=== PATIENT | female | born 1990 | race Caucasian/White ===

== ENCOUNTER 2019-11-11 16:18 | Inpatient (IN) ==
[2019-11-11] MEDS ORDERED: LACTATED RINGER'S 1,000 ML IV PRN (16:39)
[2019-11-11] MEDS ORDERED: OXYTOCIN 30 UNITS/500 ML BAG IV PRN (16:39)
--- NOTE | 2019-11-11 17:08 | History & Physical Report ---
Date of Service November 11, 2019 Assessment & Plan (1) : Admit to L&D for labor. Counseled/consented for . Reviewed RBA. Labs, EFM/toco. I called anesthesia. Admission and Anticipated Discharge Date Admission Date: November 11, 2019 History of Present Illness Chief Complaint: contractions Primary Care Provider: NO PCP 29yo @ 37 5/7 with contractions every 2-3 minutes. No vaginal bleeding or leaking fluid. + movement. complicated by: Hx Low transverse x2 - Plan for repeat at 39 weeks C/S SCHEDULED FOR 11/[address] SIMON AND DR. HUFFMAN ASSIST Need for Rhogam due to RH negative Received Rhogam at 5 weeks Rhogam received 09/07/19 OC *Will need Rhogam after delivery Psychiatrist with [facility] in [place] Allergies Allergy/AdvReac Type Severity Reaction Status Date / Time No Known Allergies Allergy Verified 11/10/19 15:22 Home Medications Home Medications Medication Instructions Recorded Confirmed Type PNV cmb#95-ferrous fumarate-FA 1 tab PO DAILY 02/17/19 11/10/19 History [] sertraline 50 mg tablet 50 mg PO DAILY #30 tab 05/20/19 11/10/19 Rx ferrous sulfate [iron] 325 mg PO DAILY 11/02/19 11/10/19 History Patient History Medical History Amenorrhea Anxiety and depression Blood type O- C. difficile colitis after c/s Genital warts Need for rhogam due to Rh negative mother with fetus of unknown gestational age Spontaneous Varicella vaccine Surgical History H/O section Previous section [place] teeth removed Family History Grandfather (Maternal) Myocardial infarction Diabetes Grandmother (Maternal) Celiac disease Rheumatoid arthritis Denies family history of Ovarian cancer Prostate cancer Breast cancer Colorectal cancer Social History Smoking Status: Never smoker Second Hand Exposure: No; Hx Alcohol Use: No Hx Substance Use: No Preferred Language: Maltese Communication Ability: Effective Senior Clinical Research Associate Required: No Beliefs That Will Affect Care: None marital status: marital status details: Herson Mishra ([phone] Current Living Situation: Spouse Current Living Situation Comment: and two children current occupational status: employed 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 at Home: Yes Childhood Exposure to Second-Hand Smoke: No caffeine: No Dental Care, Regularly: Yes Physical Activity Frequency: Does not Exercise Seatbelt Use: always Sunscreen Use: Yes Review of Systems All systems reviewed & are unremarkable except as noted in HPI & below Physical Exam Physical Exam: Cervix 2-3/50/-3, was // in office yesterday FHT Cat 1 [place] Q 2-3 min Constitutional: WD/WN, vitals as above Respiratory: normal respiratory effort, lungs clear to auscultation no respiratory distress Cardiovascular: Rate/Rhythm: regular rate and regular rhythm Gastrointestinal (Abdomen): Inspection/Auscultation: abdomen normal to inspection Percussion/Palpation: abdomen soft; abdomen nontender Gravid. No s/s chorio or abruption. Skin: no rashes, warm and dry Psychiatric: A+Ox3, euthymic affect Results & Data ([facility]) Vital Signs (Past 12 Hours) Vital Signs Temp Pulse BP 11/11/19 16:26 83 126/71 11/11/19 16:25 37.3 C Coding Level of Care Code None Diagnoses Z34.90
[2019-11-11 17:21] LABS: Hematocrit (blood only) 38.9 % (37-47); Hemoglobin 13.2 g/dL (12.0-16.0); Mean Corpuscular Hemoglobin 28.7 pg (25-34); Mean Corpuscular Volume 84.6 fL (80-100); Platelet Count 224 K/uL (130-400); RDW Coefficient of Variation 17.6 % (11.5-14.5); RDW Standard Deviation 54.8 fL (36.4-46.3); White Blood Count 12.37 K/uL (4.8-10.8)
[2019-11-11] MEDS ORDERED: CITRIC ACID/SODIUM CITRATE 15 ML UDC PO ONE (17:30)
[2019-11-11 17:31] LABS: Mean Corpuscular Hgb Conc 33.9 g/dL (32-36)
[2019-11-11] MEDS ORDERED: CITRIC ACID/SODIUM CITRATE 15 ML UDC ONE (17:31)
[2019-11-11] MEDS ORDERED: ceFAZolin 2000MG 2,000 MG/15 ML SYR IV ONE (17:45)
[2019-11-11] MEDS ORDERED: LACTATED RINGER'S 1,000 ML IV SCH ×2 (17:45→20:15)
[2019-11-11] MEDS ORDERED: OXYTOCIN 10 UNITS/ML VIAL ONE (17:51)
[2019-11-11] MEDS ORDERED: fentaNYL citrate 100 MCG/2 ML VIAL ONE (17:53)
[2019-11-11] MEDS ORDERED: MoRPHine SULFATE PF 1 MG/ML 10 ML AMP/VIAL ONE (17:53)
[2019-11-11] MEDS ORDERED: KETOROLAC 30 MG/ML VIAL ONE (17:53)
[2019-11-11] MEDS ORDERED: ONDANSETRON INJ 2 MG/ML 2 ML VIAL ONE (17:53)
[2019-11-11] MEDS ORDERED: PHENYLEPHRINE 100MCG/ML 5ML SYR ONE (17:55)
[2019-11-11] MEDS ORDERED: ePHEDrine sulfate 50 MG/ML SYR ONE (17:55)
--- NOTE | 2019-11-11 17:57 | Anesthesiology Consultation ---
Date of Service November 11, 2019 Assessment & Plan (1) Encounter for pre-operative examination: Chart Review Chart Review: Acceptable Risk for Surgery and Patient NOT seen in Pre Admission Testing Consults Requested none ASA ASA2 Proposed Anesthesia Anesthesia Type: Spinal Risk / Benefits Reviewed With: PT / POA / Parent / Guardian, Accepts Plan and Informed Consent Obtained History Surgery Operation Date: 11/11/19 17:30 Proposed Procedures p Section in - Sadie Paradaner, Height/Weight Height: 5 ft 4 in Weight: 68.492 kg Allergies Allergy/AdvReac Type Severity Reaction Status Date / Time No Known Allergies Allergy Verified 11/10/19 15:22 Medications Home Medications Medication Instructions Recorded Confirmed Last Taken PNV cmb#95-ferrous fumarate-FA 1 tab PO DAILY 02/17/19 11/10/19 11/01/19 08:00 [] sertraline 50 mg tablet 50 mg PO DAILY #30 tab 05/20/19 11/10/19 11/01/19 08:00 ferrous sulfate [iron] 325 mg PO DAILY 11/02/19 11/10/19 11/01/19 08:00 Active Medications Generic Name Dose Route Start Last Admin Trade Name Freq PRN Reason Stop Dose Admin Lactated Ringer's 1,000 mls @ 999 mls/hr 11/11/19 17:45 11/11/19 17:49 Lr IV 11/11/19 18:45 999 mls/hr .Q1H1M ROBIN Administration NPO Date Last Intake of Fluids: 11/11/19 Time Last Intake of Fluids: 14:00 Date Last Intake of Solids: 11/10/19 Time Last Intake of Solids: 11:00 Past Medical History Medical History Amenorrhea Anxiety and depression Blood type O- C. difficile colitis after c/s Genital warts Need for rhogam due to Rh negative mother with fetus of unknown gestational age Spontaneous Varicella vaccine Exercise / Class Metabolic Activity II 4-5 Yardwork/Stairs/Walk up hill Past Family History Family History Grandfather (Maternal) Myocardial infarction Diabetes Grandmother (Maternal) Celiac disease Rheumatoid arthritis Denies family history of Ovarian cancer Prostate cancer Breast cancer Colorectal cancer Past Surgical History Surgical History H/O section Previous section [place] teeth removed Past Anesthesia History No Hx of Anesthesia Complications and No Family Hx of Anesthesia Complications History of PONV No Hx of PONV and No Hx of Motion Sickness Social History Smoking Status: Never smoker Hx Alcohol Use: No Hx Substance Use: No Physical Exam Vital Signs Last Vital Signs Temp 37.3 C 11/11/19 16:48 Pulse 83 11/11/19 16:48 Resp 18 11/11/19 16:48 BP 126/71 11/11/19 16:48 ENMT Mouth: no dentition abnormality Thyromental Distance: > or= 3.5 Finger Breadths Mallampati Class: II Neck normal visual inspection Respiratory normal respiratory effort Auscultation: lungs clear to auscultation bilaterally Cardiovascular Rate/Rhythm: regular rate and regular rhythm Psychiatric Orientation: alert Testing Laboratory Results 11/11/19 17:07
[2019-11-11] MEDS ORDERED: NALOXONE HCL 0.08 MG in SYRINGE 1.8 ML IV PRN (18:32)
[2019-11-11] MEDS ORDERED: MoRPHine SULFATE 2 MG/ML CARP IV PRN (18:32)
[2019-11-11] MEDS ORDERED: PROMETHAZINE HCL 6.25 MG in SODIUM CHLORIDE 0.9% 50 ML IV PRN (18:32)
[2019-11-11] MEDS ORDERED: LACTATED RINGER'S 500 ML IV PRN (18:32)
[2019-11-11] MEDS ORDERED: ePHEDrine sulfate 50 MG/ML AMP IV PRN (18:32)
[2019-11-11] MEDS ORDERED: diphenhydrAMINE 50 MG/ML VIAL IV PRN (18:32)
[2019-11-11] MEDS ORDERED: MoRPHine SULFATE PF 1 MG/ML 10 ML AMP/VIAL INT SPINAL ONE (18:32)
[2019-11-11] MEDS ORDERED: ONDANSETRON INJ 2 MG/ML 2 ML VIAL IV PRN (18:32)
[2019-11-11] MEDS ORDERED: NALOXONE HCL 1 MG in SODIUM CHLORIDE 0.9% 1000ML 1,000 ML IV PRN (18:32)
[2019-11-11] MEDS ORDERED: MEPERIDINE HCL 25 MG/ML CARP/VIAL IV PRN (18:32)
[2019-11-11] MEDS ORDERED: NALOXONE HCL 0.4 MG/1 ML VIAL/CARP IV PRN (18:32)
[2019-11-11] MEDS ORDERED: HYDROmorphone INJ 0.5 MG/0.5 ML SYR IV PRN (18:32)
[2019-11-11] MEDS ORDERED: NO NARCOTICS OR SEDATIVES SCH (18:45)
[2019-11-11] MEDS ORDERED: SODIUM CHLORIDE 0.9% 1000ML 1,000 ML IV SCH (18:45)
[2019-11-11] MEDS ORDERED: DC INTRASPINAL MORPHINE SCH (18:45)
[2019-11-11 19:17] LABS: Base Excess Cord Venous Blood 0.2 mEq/L (-7.7-1.9); Cord Venous Blood HCO3 26 mmol/L (18.4-26.8); Cord Venous Blood PCO2 44 mmHg (30.4-57.2); Cord Venous Blood PO2 25 mmHg (14.1-43.3); Cord Venous Blood pH 7.38 (7.20-7.44)
[2019-11-11 19:23] LABS: Base Excess Cord Arterial Bld -0.2 mEq/L (-9-1.8); CO2 Cord Arterial Blood 55 mmHg (39.1-73.5); HCO3 Cord Arterial Blood 27 mmol/L (19.7-28.5); PO2 Cord Arterial Blood 13 mmHg (4.1-31.7); pH Cord Arterial Blood 7.31 (7.1-7.38)
[2019-11-11 19:28] LABS: O2 Saturation Cord Venous Bld < 60.0 % (<68); Oxygen Sat Cord Arterial Blood < 60.0 % (<60)
[2019-11-11] MEDS ORDERED: PROMETHAZINE HCL 25 MG in SODIUM CHLORIDE 0.9% 50 ML IV PRN (20:11)
[2019-11-11] MEDS ORDERED: MAGNESIUM HYDROXIDE SUSP 30 ML UDC PO PRN (20:11)
[2019-11-11] MEDS ORDERED: HYDROCORTISONE ACETATE 25 MG SUPP PR PRN (20:11)
[2019-11-11] MEDS ORDERED: BENZOCAINE 20% AER SPR 82.5 GM CAN EXT PRN (20:11)
[2019-11-11] MEDS ORDERED: SENNA 8.6 MG TAB PO PRN (20:11)
[2019-11-11] MEDS ORDERED: SUPERCREAM 0.870% 15 GM JAR EXT PRN (20:11)
[2019-11-11] MEDS ORDERED: Nursing to Pharmacy Communication SCH (20:30)
[2019-11-11] MEDS: OXYTOCIN 30 UNITS in LACTATED RINGER'S 1,000 ML IV SCH (21:16)
[2019-11-12] MEDS: KETOROLAC 30 MG/ML VIAL IV PRN ×2 (02:37→09:18)
[2019-11-12] MEDS: OXYTOCIN 30 UNITS in LACTATED RINGER'S 1,000 ML IV SCH (04:55)
[2019-11-12] MEDS: SIMETHICONE 80 MG CHEW PO SCH ×5 (05:20→20:47)
[2019-11-12 07:10] LABS: Basophils # (auto) 0.01 K/uL (0-0.2); Basophils % (auto) 0.1 %; Eosinophils # (auto) 0.09 K/uL (0-0.5); Eosinophils % (auto) 0.8 %; Hematocrit (blood only) 34.9 % (37-47); Hemoglobin 11.5 g/dL (12.0-16.0); Immature Granulocytes # (auto) 0.04 K/uL (0.00-0.02); Immature Granulocytes % (auto) 0.3 %; Lymphocytes # (auto) 1.16 K/uL (1.2-3.4); Mean Corpuscular Hemoglobin 28.1 pg (25-34); Mean Corpuscular Volume 85.3 fL (80-100); Mean Platelet Volume 9.9 fL (7.4-10.4); Monocytes % (auto) 7.8 %; Neutrophils # (auto) 9.36 K/uL (1.4-6.5); Platelet Count 152 K/uL (130-400); RDW Coefficient of Variation 17.2 % (11.5-14.5); RDW Standard Deviation 54.5 fL (36.4-46.3); Red Blood Count 4.09 M/uL (4.2-5.4); White Blood Count 11.56 K/uL (4.8-10.8)
--- NOTE | 2019-11-12 07:33 | Obstetrical Progress Note ---
Date of Service <Chin Barba MD - Last Filed: 11/12/19 07:33> November 12, 2019 Assessment & Plan <Chin Barba MD - Last Filed: 11/12/19 07:33> (1) delivery, delivered, current hospitalization: - PNL: Rh neg, RI, GBS neg, COVID neg - Feels well today - Pain well controlled with hydromorphone 0.5mg IV q4h prn, morphine 5mg IV q2h prn, oxycodone/acetaminophine 1-2tab PO q4h PRN - Routine postcesarean care - remove rai this afternoon, ambulate as tolerated, advance diet as tolerated - After discharge will have 6 week follow-up with Dr. Simon Subjective <Chin Barba MD - Last Filed: 11/12/19 07:33> Voiding: rai catheter in place Passing Gas:: Yes Diet Tolerance:: clear liquids Lochia:: Small Feeding Type:: bottle feeding Current Pain Level(1-10): 2 Constitutional: no fever and no chills Respiratory: no cough and no dyspnea Cardiovascular: no chest pain, no palpitations and no edema Gastrointestinal: no nausea and no vomiting Genitourinary (female): no dysuria Physical Exam <Chin Barba MD - Last Filed: 11/12/19 07:33> Constitutional no acute distress Respiratory normal respiratory effort, lungs clear to auscultation Cardiovascular RRR, no murmur, no edema Gastrointestinal (Abdomen) Inspection/Auscultation: normal bowel sounds Percussion/Palpation: abdomen soft incision clean/dry/intact Results & Data ([facility]) <Chin Barba MD - Last Filed: 11/12/19 07:33> Vital Signs (Past 12 Hours) Vital Signs Temp Pulse Pulse Resp BP BP Pulse Ox 11/12/19 04:15 36.8 C 82 18 94/56 L 100 11/12/19 03:30 18 11/12/19 02:59 18 11/12/19 01:30 18 11/12/19 00:00 37.0 C 76 18 107/68 100 11/11/19 23:15 18 100 11/11/19 22:20 36.8 C 80 18 110/64 100 11/11/19 21:30 36.5 C 66 18 125/82 100 11/11/19 21:16 70 100 11/11/19 21:11 70 99 11/11/19 21:07 72 106/54 L 11/11/19 21:06 73 100 11/11/19 21:05 18 11/11/19 21:01 70 99 11/11/19 20:56 70 100 11/11/19 20:51 68 100 11/11/19 20:46 68 100 11/11/19 20:41 62 100 11/11/19 20:36 72 105/71 100 11/11/19 20:35 18 11/11/19 20:31 72 100 11/11/19 20:26 68 100 11/11/19 20:21 65 100 11/11/19 20:16 70 100 11/11/19 20:11 62 100 11/11/19 20:06 64 110/59 L 100 11/11/19 20:05 18 11/11/19 20:01 66 100 11/11/19 19:56 71 100 11/11/19 19:55 18 11/11/19 19:51 60 100 11/11/19 19:46 62 100 11/11/19 19:45 65 18 105/61 11/11/19 19:41 65 100 11/11/19 19:36 73 100 11/11/19 19:35 36.9 C 60 18 102/58 L 11/11/19 19:31 65 100 <Sadie Simon, - Last Filed: 11/12/19 07:57> Co-Signing Physician Notes Resident Physician Supervision Note: I was present with Dr. Wong during the history and exam. I discussed the case with the resident and agree with the findings and plan as documented in the note. Any exceptions or clarifications are listed here: POD#1 doing well. Ambulate, increase diet today. Documented By: Sadie Simon DO
[2019-11-12] MEDS ORDERED: FERROUS SULFATE 325 MG TAB PO SCH (08:00)
[2019-11-12] MEDS ORDERED: DIPHTHERIA/TETANUS/PERTUSSIS 0.5 ML SYR/VIAL IM ONE (09:00)
[2019-11-12] MEDS: DOCUSATE SODIUM 100 MG CAP PO SCH ×2 (09:17→20:35)
[2019-11-12] MEDS: PRENATAL VITAMIN 1 TAB PO SCH (09:17)
[2019-11-12] MEDS: SERTRALINE HCL 50 MG TABLET PO SCH (09:17)
[2019-11-12] MEDS ORDERED: KETOROLAC 30 MG/ML VIAL IV PRN (12:33)
[2019-11-12] MEDS ORDERED: ONDANSETRON INJ 2 MG/ML 2 ML VIAL IV PRN (12:33)
[2019-11-12] MEDS ORDERED: diphenhydrAMINE Capsule 25 MG CAP PO PRN (12:33)
[2019-11-12] MEDS ORDERED: diphenhydrAMINE 50 MG/ML VIAL IV PRN (12:33)
[2019-11-12] MEDS ORDERED: bisacodyL 5 MG TABEC PO SCH (20:00)
[2019-11-12] MEDS ORDERED: ACETAMINOPHEN 500 MG TAB PO PRN (20:14)
[2019-11-12] MEDS: IBUPROFEN 600 MG TAB PO PRN (23:55)
[2019-11-13] MEDS: IBUPROFEN 600 MG TAB PO PRN ×2 (04:38→09:00)
[2019-11-13] MEDS: oxyCODONE/ACETAMINOPHEN 5mg/325mg TAB PO PRN ×2 (04:39→08:59)
[2019-11-13 06:00] LABS: Hematocrit (blood only) 36.1 % (37-47)
--- NOTE | 2019-11-13 06:51 | Obstetrical Progress Note ---
Date of Service <Chin Barba MD - Last Filed: 11/13/19 06:52> November 13, 2019 Assessment & Plan <Chin Barba MD - Last Filed: 11/13/19 06:52> (1) delivery, delivered, current hospitalization: - PNL: Rh neg, RI, GBS neg, COVID neg - Feels well today, POD#2 - Pain well controlled with hydromorphone 0.5mg IV q4h prn, morphine 5mg IV q2h prn, oxycodone/acetaminophine 1-2tab PO q4h PRN - Routine postcesarean care - ambulate as tolerated, advance diet as tolerated - Discharge tomorrow - After discharge will have 6 week follow-up with Dr. Simon Subjective <Chin Barba MD - Last Filed: 11/13/19 06:52> Ambulation: ambulating normally Voiding: no voiding problems Passing Gas:: Yes Diet Tolerance:: regular diet Lochia:: Small Constitutional: no fever and no chills Respiratory: no cough and no dyspnea Cardiovascular: no chest pain, no palpitations and no edema Gastrointestinal: no nausea and no vomiting Genitourinary (female): no dysuria Physical Exam <Chin Barba MD - Last Filed: 11/13/19 06:52> Constitutional no acute distress Respiratory normal respiratory effort, lungs clear to auscultation Cardiovascular RRR, no murmur, no edema Gastrointestinal (Abdomen) Inspection/Auscultation: normal bowel sounds Percussion/Palpation: abdomen soft Incision clean, dry, intact Results & Data ([facility]) <Chin Barba MD - Last Filed: 11/13/19 06:52> Vital Signs (Past 12 Hours) Vital Signs Temp Pulse Resp BP Pulse Ox 11/13/19 00:00 36.8 C 81 18 103/68 98 <Paul Mensah Jr, MD, FACOG - Last Filed: 11/13/19 08:07> Co-Signing Physician Notes Resident Physician Supervision Note: I was present with Dr. Wong during the history and exam. I discussed the case with the resident and agree with the findings and plan as documented in the note. Any exceptions or clarifications are listed here: Patient ambulating and tolerating a regular diet. Doing well and desires d/c. Instructions/Rx given, f/u in 6 weeks for pp check Documented By: Paul Mensah Jr, MD, FACOG
[2019-11-13] MEDS: DOCUSATE SODIUM 100 MG CAP PO SCH (08:59)
[2019-11-13] MEDS: SIMETHICONE 80 MG CHEW PO SCH (08:59)
[2019-11-13] MEDS: SERTRALINE HCL 50 MG TABLET PO SCH (08:59)
[2019-11-13] MEDS: PRENATAL VITAMIN 1 TAB PO SCH (08:59)
[2019-11-13 09:13] VITALS: BP 118/69; PULSE 71; TEMP 98.1; O2SAT 97
[2019-11-13] MEDS ORDERED: bisacodyL 10 MG SUPP PR PRN (20:02)
--- NOTE | 2019-11-22 19:36 | Operative Report ---
PG Post Operative Report Pre & Post Diagnosis Operation Date: 11/11/19 17:30 Pre-Op Diagnosis: History of C/S X2 CURRENT SPONTANOUS LABOR Post-Op Diagnosis: History of C/S X2 CURRENT SPONTANOUS LABOR I identified the patient and participated in the time-out.: Yes Procedure Operation Date: 11/11/19 17:30 Actual Procedures p Repeat low transverse Section in - Sadie Simon DO Surgeon Sadie Simon DO Tool And Die Maker Apprentice Maged Mensah MD Estimated Blood Loss 500 Findings Consistent with Post-Op Diagnosis Viable , please see nursery records. Normal appearing uterus, tubes, ovaries. Specimens placenta, cord gas. Drains rai clear yellow Anesthesia Type Spinal Complications none Disposition Accompanied Patient To Recovery: No Disposition: L&D Indications 29yo @ 37w, h/o x 2, presented in labor. Description of Procedure The patient was seen in her labor and delivery room, risks benefits and alternatives to surgery were reviewed. Informed consent obtained. Questions were answered. She was taken to the operating room, spinal anesthesia was administered. She was then prepared and draped in the usual sterile fashion in the supine position with a leftward tilt. Timeout was confirmed. A Pfannenstiel skin incision was made with a scalpel, and carried through to the underlying layer of fascia. Fascia was nicked at midline, and this incision was extended bilaterally. The superior aspect of the fascial incision was grasped with Jaya clamps x2, elevated off the underlying rectus abdominis muscles, and dissected sharply and bluntly. In similar fashion, the inferior aspect of the fascial incision was dissected. The rectus abdominis muscles were , and the peritoneum was entered bluntly digitally. This was extended bilaterally. The bladder flap was taken down carefully using Metzenbaum scissors. Using a new scalpel, a low transverse uterine incision was created. Clear amniotic fluid noted. The was delivered from a cephalic presentation. The head delivered, followed by shoulders and body. Spontaneous cry on the field. The cord was doubly clamped and cut, and the infant was handed off to the waiting juvenile justice specialist. A segment was retained for cord gases. Cord blood was obtained. The placenta was delivered spontaneously intact. The uterus was exteriorized, and cleared of all clots and debris. The hysterotomy incision was reapproximated using 0 Vicryl in a running locked stitch. A second layer of the same suture was used to imbricate the incision. Posterior uterus was evaluated and normal. The uterus was returned to the abdomen, and gutters were cleared of clots and debris. Excellent hemostasis was observed. The fascial incision was reapproximated using 0 Vicryl in a running stitch. The subcutaneous tissue was irrigated, and reapproximated using 2-0 plain gut in a running stitch. The skin was reapproximated using 4-0 Vicryl in a running subcuticular stitch. Steri-Strips and a bandage were applied. The patient tolerated the procedure well, and will be taken to the recovery area in stable and good condition. I attest to the content of the Intraoperative Record and any orders documented therein. Any exceptions are noted below.
--- NOTE | 2019-11-22 19:42 | Discharge Summary ---
Date of Service November 22, 2019 Admission HPI Per Admitting Provider 29yo @ 37 5/7 with contractions every 2-3 minutes. No vaginal bleeding or leaking fluid. + movement. complicated by: Hx Low transverse x2 - Plan for repeat at 39 weeks C/S SCHEDULED FOR 11/[address] SIMON AND DR. HUFFMAN ASSIST Need for Rhogam due to RH negative Received Rhogam at 5 weeks Rhogam received 09/07/19 OC *Will need Rhogam after delivery Psychiatrist with [facility] in [place] Discharge Data Consultations 11/11/19 16:42 Consult Anesthesiology Stat Procedures Performed Operation Date: 11/11/19 17:30 Actual Procedures p Section in - Sadie Simon, Hospital Course (1) Supervision of normal intrauterine in multigravida: The patient was admitted in labor, underwent section. Please see operative report for details. She was discharged after a routine postoperative course. Follow-up in the office in 6 weeks. Coding Level of Care Code None Diagnoses Supervision of normal intrauterine in multigravida Z34.80
== END 2019-11-13 10:20 | disposition home or self-care (01) | DRG 787 ==
LOC: OPB 16:18 → 4S1 16:19 → 4S2 21:44

== ENCOUNTER 2022-06-15 14:55 | Observation (INO) ==
[2022-06-15] MEDS ORDERED: TERBUTALINE SULFATE 1 MG/ML VIAL SQ PRN (15:29)
--- NOTE | 2022-06-15 16:15 | History & Physical Report ---
Date of Service June 15, 2022 Assessment & Plan (1) uterine contractions in third trimester, antepartum: Plan: IUP at 33-3/7 weeks with contractions. Urine dips negative for ketones or protein. I believe she is well-hydrated as she states she has been pushing fluids for the last several days. Cervical exam is reassuring. FFN performed and while waiting for the results, will give 1 dose of SQ terbutaline. If FFN is positive we will give Celestone IM today and have her return for second dose tomorrow. If negative, we will have her follow-up in the office for routine OB care. Admission and Anticipated Discharge Date Admission Date: June 15, 2022 History of Present Illness Primary Care Provider: Ramana Haskins DO patient is a 32-year-old 6 para 3-0-2-3 female EDC 07/31/2022 who presents at 33-3/7 weeks with increasingly more frequent contractions over the last 48 hours. She tends to have fairly frequent [place] contractions, at least every hour over the last several weeks. However over the last 48 hours they have become increasingly more frequent and more uncomfortable. She has had no change in vaginal discharge bleeding or leaking fluid. Her first delivered at 39 weeks however subsequent pregnancies were delivered at 37 weeks. She has had 3 sections and she is already scheduled for her fourth section at 39 weeks. Allergies Allergy/AdvReac Type Severity Reaction Status Date / Time No Known Allergies Allergy Verified 06/11/22 11:04 Home Medications Medication Instructions Recorded Confirmed Type prenat.vits,zina,xln-kive-jkpeo 1 tab PO DAILY 12/15/21 06/15/22 History docusate sodium 100 mg capsule 100 mg PO BID 06/15/22 06/15/22 History (Colace) ferrous sulfate 325 mg (65 mg 325 mg PO DAILY 06/15/22 06/15/22 History iron) tablet omega-3 fatty acids 800 mg PO DAILY 06/15/22 06/15/22 History Patient History Medical History (Updated 06/15/22 @ 16:11 by Tessa Bejarano MD, FACOG) Amenorrhea Anxiety Anxiety and depression Blood type O- C. difficile colitis after c/s Genital warts Need for rhogam due to Rh negative mother with fetus of unknown gestational age Spontaneous Varicella vaccine Surgical History (Updated 12/15/21 @ 15:22 by Nicohle Gorman) H/O section Previous section [place] teeth removed Family History Grandfather (Maternal) Myocardial infarction Diabetes Grandmother (Maternal) Celiac disease Rheumatoid arthritis Denies family history of Ovarian cancer Prostate cancer Breast cancer Colorectal cancer Social History (Updated 12/15/21 @ 15:16 by Nichole Gorman) Smoking Status: Never smoker Second Hand Exposure: No; Hx Alcohol Use: No Hx Substance Use: No Preferred Language: Turkish Communication Ability: Effective Visual Impairment: Limited Hearing Ability: Normal Veterinarian Assistant Required: No Beliefs That Will Affect Care: None marital status: marital status details: Herson Mishra ([phone] Current Living Situation: Spouse and Family Current Living Situation Comment: lives with , 3 children, dog current occupational status: employed 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 at Home: Yes Childhood Exposure to Second-Hand Smoke: No caffeine: No Dental Care, Regularly: Yes Physical Activity Frequency: Does not Exercise Seatbelt Use: always Sunscreen Use: Yes Assistive Devices: None Review of Systems All systems reviewed & are unremarkable except as noted in HPI & below Physical Exam Constitutional: WD/WN, vitals as above Psychiatric: A+Ox3, euthymic affect Genitourinary: OB Exam Abdomen: + vertex and + regular contractions ( Q2-4 minutes- mild) Manual OB Exam: + cervical dilation (closed), + cervical effacement (long but soft) and + station high OB Exam Monitor Tracing: + external FHT monitor used, + external uterine monitor used, + category I and + normal FHT variability Results & Data Vital Signs (Past 12 Hours) Vital Signs Temp Pulse Resp BP 06/15/22 15:50 85 96/55 L 06/15/22 15:05 18 06/15/22 15:05 98.4 F 18 06/15/22 15:06 75 102/64 Coding Level of Care Code 22694 INT INP/OBS CARE 1/40MIN Diagnoses uterine contractions in third trimester, antepartum O47.03
--- NOTE | 2022-06-15 16:59 | Obstetrical Progress Note ---
Date of Service June 15, 2022 Assessment & Plan (1) uterine contractions in third trimester, antepartum: Plan: contractions now rare since SQ terbutaline FHT category 1 FFN -negative patient feeling better will d/c to home with usual PTL instructions she will keep appt already scheduled for Sunday 06/18. Admission and Anticipated Discharge Date Admission Date: June 15, 2022 Subjective contractions stopped quickly with one dose of terbutaline. contractions now rare FFN is negative FHT's category 1 Review of Systems Review of Systems: All systems reviewed & are unremarkable except as noted in HPI & below Physical Exam Constitutional: WD/WN, vitals as above Psychiatric: A+Ox3, euthymic affect Genitourinary: OB Exam Abdomen: + irregular contractions (rare) OB Exam Monitor Tracing: + external FHT monitor used, + external uterine monitor used, + category I and + normal FHT variability Results & Data Vital Signs (Past 12 Hours) Vital Signs Temp Pulse Resp BP 06/15/22 16:12 90 101/60 06/15/22 15:50 85 96/55 L 06/15/22 15:05 18 06/15/22 15:05 98.4 F 18 06/15/22 15:06 75 102/64 PG Care Time/CCT Total # of Minutes Spent Total Time Spent with Patient: Total time spent is greater than 50% in coordination of care (as documented) at patient's floor/unit and/or counseling patient: Coding Level of Care Code 75536 SUB INP/OBS CARE 1/25MIN Diagnoses uterine contractions in third trimester, antepartum O47.03
--- NOTE | 2022-06-20 04:33 | Discharge Summary (DS) ---
DATE OF OBSERVATION: 06/15/2022. PRINCIPAL DIAGNOSIS: contractions at 33 and 3/7 weeks, prior section x3. HISTORY: The patient is a 32-year-old 6, para 3-0-2-3, female who had presented at 33 and 3/7 weeks with increasingly more frequent and intense contractions over the past 48 hours. She has always had frequent [place] contractions, but they are becoming more concerning at this point. She denied any vaginal discharge or leaking fluid. Her first delivered at 39 weeks by section, but subsequent pregnancies were delivered at 37 weeks because of presentation in labor. All of her deliveries have been by section. The patient was noted to be lee about every 2-3 minutes on the monitor. heart tracing was reassuring and category 1. She was well hydrated as noted on urine dipstick for ketones. She was given 1 dose of terbutaline 0.25 mg subcutaneously and this significantly diminished the contractions to just rare occurrences. FFN was negative at this visit and cervical exam was long closed and high; therefore Celestone was not given because of the decreased chance of delivery at this time based on an FFN. She will keep her previously scheduled appointment on 06/18/2022. She is to call again for any contractions that are greater than 5 in an hour, bleeding, or change in vaginal discharge. Job ID: [id number] [facility]
== END 2022-06-15 16:45 | disposition home or self-care (01) ==
LOC: 4S1 14:55 → OPB 14:55 → 4S1 14:56
DX: Z3A.33 33 weeks gestation of pregnancy; O47.03 False labor before 37 completed weeks of gestation, third trimester

== ENCOUNTER 2022-07-10 10:38 | Inpatient (IN) ==
[~2022-07-10 10:38] MED LIST: CITRIC ACID/SODIUM CITRATE 15 ML UDC PO SCH; ceFAZolin 2000MG 2,000 MG/15 ML SYR IV SCH
[2022-07-10] MEDS: LACTATED RINGER'S 1,000 ML IV SCH ×2 (12:23→13:28)
--- NOTE | 2022-07-10 12:23 | History & Physical Report ---
Date of Service July 10, 2022 Assessment & Plan (1) Previous delivery affecting , antepartum: Plan: Dayanara is a 32-year-old at 37 weeks 0 days gestational age presents in early labor with history of 3 prior C-sections. discussed with patient that she appears to be in early labor with 3 prior C-sections recommended we proceed with Caesarean section. Discussed this plan with MFM who was in agreement. C- section consents reviewed and signed. Surgical risks specifically reviewed all questions answered patient's satisfaction. Patient declined tubal ligation. Reactive NST noted. (2) Supervision of normal intrauterine in multigravida: (3) Normal labor: History of Present Illness Primary Care Provider: Ramana Haskins DO Dayanara is a 32-year-old 023 with history of 3 prior C-sections. Patient presents with painful contractions every 3-5 minutes which have been ongoing for the past 4-5 weeks. She reports that the contractions acutely worsened this morning. Patient was noted be 1 cm dilated yesterday. Initial evaluation today she was found to be 1.5 to 2 cm dilated 75% effaced -2 station. Recheck approximately 1 hour later patient was found to be 2 to 2.5 cm dilated 90% effaced -2 station. patient is noted be lee on tocometer every 3-4 minutes. Patient denies leakage of fluid or vaginal bleeding. reporting good movement. complications: Previous c-sections x 3 - C/S SCHEDULED FOR 07/27/[address] JACOB AND DR. REID ASSIST Need for Rhogam d/t Rh negative mother *Rhogam given 05/14/22 - SP OB Labs: Blood Type O Negative 01/03/22 Antibody Screen NEGATIVE 05/14/22 Hemoglobin 10.9 g/dl (12.0-16.0) L 05/14/22 Hematocrit 31.7 % (37.0-47.0) L 05/14/22 Mean Corpuscular Volume 84.3 fL (80.0-100.0) 01/03/22 Platelet Count 284 K/uL (130-400) 01/03/22 Rubella IgG Antibody Immune (Immune) 01/03/22 Rapid Plasma Reagin Nonreactive (Nonreactive) 01/03/22 F Hepatitis B Surface Antigen Neg (Neg) 04/30/19 Hepatitis B Surface Antigen. NON-REACTIVE (NON-REACTIVE) 01/03/22 Hepatitis C Antibody (EIA) NON-REACTIVE (NON-REACTIVE) 01/03/22 HIV (1&2) Ab and P24 Ag, 4th Gener Neg (Neg) 04/30/19 HIV (1&2) Ag and Ab Confirmation NON-REACTIVE (NON-REACTIVE) 01/03/22 Glucose 1 Hour 50 gm Load 145 mg/dl (70-130) H 05/14/22 Maternal Serum Alpha Fetoprotein 26.0 ng/mL 02/19/22 OB Optional Labs: Chlamydia trachomatis RNA Not Detected (NotDetected) 12/27/21 Neisseria gonorrhoeae RNA Not Detected (NotDetected) 12/27/21 Alpha Fetoprotein Triple Screen SEE NOTE 02/19/22 Labs Reviewed: cf/sma negative.--2020 cfdna-low risk--mln Allergies Allergy/AdvReac Type Severity Reaction Status Date / Time No Known Allergies Allergy Verified 07/09/22 14:35 Home Medications Medication Instructions Recorded Confirmed Type prenat.vits,zina,ksm-apla-bgafz 1 tab PO DAILY 12/15/21 07/09/22 History docusate sodium 100 mg capsule 100 mg PO BID 06/15/22 07/09/22 History (Colace) ferrous sulfate 325 mg (65 mg 325 mg PO DAILY 06/15/22 07/09/22 History iron) tablet omega-3 fatty acids 800 mg PO DAILY 06/15/22 07/09/22 History Patient History Medical History Amenorrhea Anxiety Anxiety and depression Blood type O- C. difficile colitis after c/s Genital warts Need for rhogam due to Rh negative mother with fetus of unknown gestational age Spontaneous Varicella vaccine Surgical History H/O section Previous section [place] teeth removed Family History Grandfather (Maternal) Myocardial infarction Diabetes Grandmother (Maternal) Celiac disease Rheumatoid arthritis Denies family history of Ovarian cancer Prostate cancer Breast cancer Colorectal cancer Social History (Updated 12/15/21 @ 15:16 by Nichole Gorman) Smoking Status: Never smoker Second Hand Exposure: No; Do You Dip or Chew Tobacco: No; Hx Alcohol Use: No Hx Substance Use: No Preferred Language: Bruneian Communication Ability: Effective Visual Impairment: Limited Hearing Ability: Normal Senior Sql Server Developer Required: No Beliefs That Will Affect Care: None marital status: marital status details: Herson Mishra (35) [phone] Current Living Situation: Spouse Current Living Situation Comment: lives with , 3 children, dog current occupational status: employed 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 at Home: Yes Childhood Exposure to Second-Hand Smoke: No caffeine: No Dental Care, Regularly: Yes Physical Activity Frequency: Does not Exercise Seatbelt Use: always Sunscreen Use: Yes Assistive Devices: None Physical Exam Respiratory: normal respiratory effort; no respiratory distress, no labored breathing and no retractions Cardiovascular: Rate/Rhythm: regular rate Genitourinary: Manual OB Exam: + cervical dilation 2 cm, + cervical effacement 90% and + station -2 OB Exam Monitor Tracing: + external FHT monitor used, + external uterine monitor used, + category I and + normal FHT variability; no early decelerations present, no late decelerations present and no variable decelerations tocometer with contractions every 3-5 minutes Coding Level of Care Code None Diagnoses Previous delivery affecting , antepartum O34.219 Supervision of normal intrauterine in multigravida Z34.80 Normal labor O80; Z37.9
--- NOTE | 2022-07-10 12:26 | Anesthesiology Consultation ---
Date of Service July 10, 2022 Assessment & Plan (1) Encounter for pre-operative examination: Chart Review Chart Review: Acceptable Risk for Surgery History Height/Weight Height: 5 ft 4 in Weight: 66.224 kg Allergies Allergy/AdvReac Type Severity Reaction Status Date / Time No Known Allergies Allergy Verified 07/09/22 14:35 Medications Home Medications Medication Instructions Recorded Confirmed Last Taken prenat.vits,zina,pub-eziw-aftny 1 tab PO DAILY 12/15/21 07/09/22 06/25/22 docusate sodium 100 mg capsule 100 mg PO BID 06/15/22 07/09/22 Unknown (Colace) ferrous sulfate 325 mg (65 mg 325 mg PO DAILY 06/15/22 07/09/22 06/25/22 iron) tablet omega-3 fatty acids 800 mg PO DAILY 06/15/22 07/09/22 06/25/22 Past Medical History Medical History Amenorrhea Anxiety Anxiety and depression Blood type O- C. difficile colitis after c/s Genital warts Need for rhogam due to Rh negative mother with fetus of unknown gestational age Spontaneous Varicella vaccine Past Family History Family History Grandfather (Maternal) Myocardial infarction Diabetes Grandmother (Maternal) Celiac disease Rheumatoid arthritis Denies family history of Ovarian cancer Prostate cancer Breast cancer Colorectal cancer Past Surgical History Surgical History H/O section Previous section [place] teeth removed Social History Smoking Status: Never smoker Do You Dip or Chew Tobacco: No Hx Alcohol Use: No Hx Substance Use: No substance use type: does not use Testing Laboratory Results Laboratory Tests 02/17/19 01/03/22 05/14/22 21:10 12:02 15:36 Hgb 10.9 L Plt Count 284 Potassium 3.3 L Creatinine 0.86
[2022-07-10] MEDS ORDERED: MoRPHine SULFATE PF 1 MG/ML 10 ML AMP/VIAL ONE (12:29)
[2022-07-10] MEDS ORDERED: LIDOCAINE 2% MPF LOCAL 5 ML VIAL ONE (12:35)
[2022-07-10] MEDS ORDERED: OXYTOCIN 10 UNITS/ML 10ML VIAL ONE (12:35)
[2022-07-10] MEDS ORDERED: METOCLOPRAMIDE HCL INJ 5 MG/ML 2 ML VIAL ONE (12:35)
[2022-07-10] MEDS ORDERED: PROPOFOL IV EMULSION 10 MG/ML 20 ML VIAL IV ONE (12:35)
[2022-07-10] MEDS ORDERED: ONDANSETRON INJ 2 MG/ML 2 ML VIAL ONE (12:35)
[2022-07-10] MEDS ORDERED: SUCCINYLCHOLINE CHLORIDE 20 MG/ML 10 ML VIAL IV ONE (12:35)
[2022-07-10] MEDS ORDERED: CITRIC ACID/SODIUM CITRATE 15 ML UDC ONE (12:42)
[2022-07-10 13:12] LABS: Hematocrit (blood only) 37.1 % (37.0-47.0); Hemoglobin 12.9 g/dl (12.0-16.0); Mean Corpuscular Hemoglobin 31.6 pg (25.0-34.0); Mean Corpuscular Hgb Conc 34.8 g/dL (32.0-36.0); Mean Corpuscular Volume 90.9 fL (80.0-100.0); Mean Platelet Volume 9.8 fL (9.4-12.4); Platelet Count 162 K/uL (130-400); RDW Coefficient of Variation 13.6 % (11.5-14.5); RDW Standard Deviation 45.1 fL (36.4-46.3); Red Blood Count 4.08 M/uL (4.20-5.40); White Blood Count 10.59 K/ul (4.8-10.8)
[2022-07-10] MEDS ORDERED: PHENYLEPHRINE 100MCG/ML 5ML SYR ONE (13:50)
[2022-07-10] MEDS ORDERED: ePHEDrine sulfate 50 MG/ML SYR ONE (13:50)
[2022-07-10] MEDS ORDERED: MoRPHine SULFATE PF 1 MG/ML 10 ML AMP/VIAL INT SPINAL ONE (14:39)
[2022-07-10] MEDS ORDERED: NALBUPHINE HCL INJ 10 MG/ML AMP IV PRN (14:39)
[2022-07-10] MEDS ORDERED: ePHEDrine sulfate 50 MG/ML AMP IV PRN (14:39)
[2022-07-10] MEDS ORDERED: MoRPHine SULFATE 2 MG/ML CARP IV PRN (14:39)
[2022-07-10] MEDS ORDERED: ONDANSETRON INJ 2 MG/ML 2 ML VIAL IV PRN (14:39)
[2022-07-10] MEDS ORDERED: LACTATED RINGER'S 500 ML IV PRN (14:39)
[2022-07-10] MEDS ORDERED: PROMETHAZINE HCL 12.5 MG in SODIUM CHLORIDE 0.9% 50 ML IV PRN (14:39)
[2022-07-10] MEDS ORDERED: NALOXONE HCL 0.4 MG/1 ML VIAL/CARP IV PRN (14:39)
[2022-07-10] MEDS ORDERED: diphenhydrAMINE 50 MG/ML VIAL IV PRN (14:39)
[2022-07-10] MEDS ORDERED: NALOXONE HCL 0.08 MG in SYRINGE 1.8 ML IV PRN (14:39)
[2022-07-10] MEDS ORDERED: NALOXONE HCL 1 MG in SODIUM CHLORIDE 0.9% 1000ML 1,000 ML IV PRN (14:39)
--- NOTE | 2022-07-10 14:42 | Post Operative Brief Note ---
PG Immediate Post Op with CF Date of Surgery July 10, 2022 Pre & Post Diagnosis Operation Date: 07/10/22 13:30 Pre-Op Diagnosis: Early term Labor Repeat SECTION Post-Op Diagnosis: Early term Labor Repeat SECTION I identified the patient and participated in the time-out.: Yes Procedure Operation Date: 07/10/22 13:30 Actual Procedures p Section in LD - Prieto Doshi MD Surgeon Prieto Doshi MD Data Security Consultant Caty Glasgow PGY-1 Estimated Blood Loss 500 Findings Consistent with Post-Op Diagnosis Specimens Specimen Description: A) Placenta Drains Magallanes Catheter (draining and monitored by anesthesia throughout procedure ) OB Procedure charges OB Charges 72495
[2022-07-10] MEDS ORDERED: SODIUM CHLORIDE 0.9% 1000ML 1,000 ML IV SCH (14:45)
[2022-07-10] MEDS ORDERED: NO NARCOTICS OR SEDATIVES SCH (14:45)
[2022-07-10] MEDS ORDERED: DC INTRASPINAL MORPHINE SCH (14:45)
[2022-07-10] MEDS ORDERED: BENZOCAINE 20% AER SPR 82.5 GM CAN EXT PRN (14:59)
[2022-07-10] MEDS ORDERED: DIPHTHERIA/TETANUS/PERTUSSIS 0.5mL SYR/VIAL (Age 7+yrs) IM ONE (14:59)
[2022-07-10] MEDS ORDERED: LACTATED RINGER'S 1,000 ML IV SCH (14:59)
[2022-07-10] MEDS ORDERED: MAGNESIUM HYDROXIDE SUSP 30 ML UDC PO PRN (14:59)
[2022-07-10] MEDS ORDERED: SENNA 8.6 MG TAB PO PRN (14:59)
[2022-07-10] MEDS ORDERED: HYDROCORTISONE ACETATE 25 MG SUPP PR PRN (14:59)
--- NOTE | 2022-07-10 16:02 | Anesthesiology Progress Note ---
Date of Service July 10, 2022 Anesthesia Post Procedure Vital Signs Vital Signs: Temp Pulse Resp BP Pulse Ox 07/10/22 15:42 36.4 C L 19 07/10/22 14:45 36.4 C L 17 07/10/22 16:00 69 99 07/10/22 15:55 83 100 07/10/22 15:50 76 99 07/10/22 15:46 65 98/54 L 07/10/22 15:45 68 99 07/10/22 15:40 75 99 07/10/22 15:39 72 104/53 L 07/10/22 15:35 81 98 07/10/22 15:30 74 97 07/10/22 15:28 86 90/54 L 07/10/22 15:25 84 96 07/10/22 15:20 80 97 07/10/22 15:18 73 93/55 L 07/10/22 15:15 74 96 07/10/22 15:10 80 96 07/10/22 15:08 91 H 105/63 07/10/22 15:05 92 07/10/22 15:05 94 H 07/10/22 15:05 80 99 07/10/22 15:00 79 100 07/10/22 14:59 96 H 108/58 L 07/10/22 14:55 76 99 07/10/22 14:50 96 H 100 07/10/22 14:46 68 105/58 L Transfer of Care Handoff Completed per policy Notes Mental Status: alert / awake / arousable Patient Amnestic to Procedure: Yes Nausea / Vomiting: adequately controlled Pain: adequately controlled Airway Patency, RR, SpO2: stable & adequate BP & HR: stable & adequate Hydration State: stable & adequate Neuraxial Anesthesia: was administered and sensory block is resolving Anesthetic Complications: no major complications apparent
[2022-07-10] MEDS: IBUPROFEN 600 MG TAB PO PRN (16:30)
[2022-07-10] MEDS: OXYTOCIN 20 UNITS in LACTATED RINGER'S 1,000 ML IV SCH (17:02)
[2022-07-10] MEDS: SIMETHICONE 80 MG CHEW PO SCH ×2 (18:50→21:10)
[2022-07-10] MEDS: KETOROLAC 30 MG/ML VIAL IV PRN (20:04)
[2022-07-10] MEDS: DOCUSATE SODIUM 100 MG CAP PO SCH (21:10)
[2022-07-11] MEDS: OXYTOCIN 20 UNITS in LACTATED RINGER'S 1,000 ML IV SCH (01:07)
[2022-07-11] MEDS: KETOROLAC 30 MG/ML VIAL IV PRN ×2 (02:21→08:26)
--- NOTE | 2022-07-11 02:21 | Operative Report (OR) ---
DATE OF SERVICE: 07/10/2022. PROCEDURE: Repeat low transverse section. SURGEON: Prieto Doshi MD. DETASSELER: Dr. Caty Glasgow, PGY-1. PREOPERATIVE DIAGNOSES: 1. Single intrauterine at 37 weeks, 0 days gestational age. 2. History of x3. 3. Early labor. POSTOPERATIVE DIAGNOSES: 1. Single intrauterine at 37 weeks, 0 days gestational age. 2. History of x3. 3. Early labor. 4. Status post procedure. ESTIMATED BLOOD LOSS: 500 mL. DRAINS: Magallanes catheter. FLUIDS: Continuous lactated Ringer. URINE OUTPUT: Per Magallanes catheter. COMPLICATIONS: None. FINDINGS: Viable female with Apgars of 8 and 9 at one and five minutes respectively and weig ht of 7 pounds 0.9 ounces. There was noted to be scar tissue in the subcutaneous layers. No signifi cant adhesions or scar tissue within the abdominal cavity. Normal-appearing uterus, ovaries and bila teral fallopian tubes. DESCRIPTION OF PROCEDURE: The patient was taken to the operating room after consents were assured. Upon presentation, she was properly identified. Spinal anesthesia was obtained without difficulty. The patient was then prepped and draped in normal sterile fashion. A preprocedural timeout was perfo rmed. A Pfannenstiel incision was then made with a knife. This was carried down to underlying fasci a with the Bovie. Fascia was then nicked at the midline with a knife and extended laterally with nikhil grullon and Garay scissors. The superior aspect of the fascia was grasped with Kochers x2, elevated off the underlying rectus muscles using blunt dissection. The inferior aspect of the fascia was grasped with Kochers x2, elevated off the underlying rectus muscles using blunt dissection. Midline of the a bdomen was then entered bluntly and placed on stretch to provide adequate room for delivery. There w as noted to be no significant adhesions or scar tissue within the abdominal cavity. A low transverse uterine incision was then made with a knife. The uterine cavity was entered bluntly and clear amnio tic fluid was noted. The hysterotomy was then extended to allow room for delivery. The head of the was delivered to be in cephalic position, was delivered through the hysterotomy without diffi culty, body and shoulders quickly followed. was noted to be vigorous soon after delivery and a 1 minute delayed cord clamping was initiated. Cord was then double clamped and cut. was taken over to the waiting nursery staff for further evaluation. Cord blood was obtained. Attention was then turned to delivery of the placenta, which was delivered intact, 3-vessel cord, gentle cord t raction. The uterus was then exteriorized, several passes were made to remove any remaining membrane s with a dry lap. The uterus was wrapped in wet lap and the hysterotomy was reapproximated with 0 Vi cryl continuous running locked stitch. A second imbricating layer of 0 Vicryl was then performed and hemostasis was noted. Posterior cul-de-sac cleaned of clots and debris. Uterus returned to materna l abdomen, noted to have continued hemostasis. The right and left pericolic gutters were cleaned of clots and debris, and the uterus was reinspected and noted to have continued hemostasis. The subcuta neous layers, fascia and space of Retzius were all evaluated and noted to be hemostatic. The fascia was then reapproximated with 0 Vicryl in continuous running stitch. The subcutaneous layers were dianne pproximated with a 2-0 plain with continuous running stitch in a single layer. Skin was reapproximat ed with 3-0 Vicryl and subcuticular stitch and Dermabond placed on top. Needle, sponge, and instrume nt counts were correct at the completion of the case. Both mother and stable in the immediat e post-delivery period. Job ID: [id number]
[2022-07-11] MEDS ORDERED: CITRIC ACID/SODIUM CITRATE 15 ML UDC PO SCH (06:00)
[2022-07-11] MEDS ORDERED: ceFAZolin 2000MG 2,000 MG/15 ML SYR IV SCH (06:00)
[2022-07-11 06:22] LABS: Basophils # (auto) 0.03 K/uL (0-0.2); Basophils % (auto) 0.2 %; Eosinophils # (auto) 0.05 K/uL (0-0.50); Eosinophils % (auto) 0.4 %; Hematocrit (blood only) 33.2 % (37.0-47.0); Hemoglobin 11.6 g/dl (12.0-16.0); Immature Granulocytes # (auto) 0.18 K/uL (0.01-0.20); Immature Granulocytes % (auto) 1.3 %; Lymphocytes # (auto) 1.26 K/uL (1.2-3.4); Lymphocytes % (auto) 9.3 %; Mean Corpuscular Hemoglobin 31.4 pg (25.0-34.0); Mean Corpuscular Hgb Conc 34.9 g/dL (32.0-36.0); Mean Platelet Volume 9.8 fL (9.4-12.4); Monocytes # (auto) 1.13 K/uL (0.11-0.59); Monocytes % (auto) 8.3 %; Neutrophils # (auto) 10.93 K/uL (1.40-6.50); Neutrophils % (auto) 80.5 %; Platelet Count 159 K/uL (130-400); RDW Coefficient of Variation 13.6 % (11.5-14.5); RDW Standard Deviation 44.1 fL (36.4-46.3); Red Blood Count 3.69 M/uL (4.20-5.40); White Blood Count 13.58 K/ul (4.8-10.8)
--- NOTE | 2022-07-11 06:47 | Obstetrical Progress Note ---
Date of Service July 11, 2022 Assessment & Plan (1) Normal labor: (2) Gestational diabetes mellitus (GDM) affecting , antepartum: (3) Previous delivery affecting , antepartum: (4) Need for rhogam due to Rh negative mother: (5) uterine contractions in third trimester, antepartum: Plan Dayanara is a 32 y/o female who is POD #1 following repeat LTCS delivery at 37 weeks. -Meeting all milestones -Vital signs reviewed and WNL -Advance diet as tolerated, encourage ambulation -Remove rai catheter today -Follow up in 6 weeks for appointment -Continue routine care Admission and Anticipated Discharge Date Admission Date: July 10, 2022 Supervising Physician Co-Signing Physician Notes patient seen with resident and agree with the above findings and plan. Routine OB care. Subjective Dayanara is a 32 y/o female who is POD #1 following repeat LTCS delivery at 37 weeks. She has a history of 3 prior deliveries. She reports feeling well overall this morning. Some abdominal pain but mainly notes nausea and vomiting ongoing for the past 12 hours. This morning feeling a bit better. Rai catheter still in place. Endorses passing gas. Review of Systems Constitutional: no fever, no chills and no sweats Respiratory: no cough, no dyspnea and no wheezing Cardiovascular: no chest pain and no calf pain Genitourinary: no dysuria Neurologic: no headache(s) Physical Exam Constitutional: WD/WN, vitals as above no acute distress Eyes: Anicteric sclera Respiratory: no respiratory distress Good respiratory effort. Cardiovascular: Extremities: no edema Regular heart rate, limbs well perfused. Gastrointestinal (Abdomen): Inspection/Auscultation: normal bowel sounds Skin: no rashes, warm and dry Genitourinary: Uterine fundus firm, palpable below the umbilicus. Surgical incision site clean and healing appropriately. Results & Data Vital Signs (Past 12 Hours) Vital Signs Temp Pulse Resp BP Pulse Ox O2 Del Method 07/11/22 06:00 18 98 07/11/22 04:00 18 99 07/11/22 05:00 18 100 07/11/22 04:45 37.0 C 73 20 100/59 L 98 Room Air 07/11/22 03:00 18 100 07/11/22 02:00 18 99 05/10/23 01:15 18 98 07/11/22 00:00 18 100 07/10/22 23:00 18 99 07/10/22 22:00 18 99 07/10/22 23:36 36.9 C 76 18 100/64 100 Room Air 07/10/22 21:00 18 100 07/10/22 20:00 20 100 07/10/22 19:21 20 99 07/10/22 19:21 36.6 C 74 20 94/53 L 99 Room Air Resident Activity Tracking Resident Involvement: Resident Care Provided Care Provided: OB Delivery
[2022-07-11] MEDS: FERROUS SULFATE 325 MG TAB PO SCH (08:26)
[2022-07-11] MEDS: PRENATAL VITAMIN 1 TAB PO SCH (08:26)
[2022-07-11] MEDS: DOCUSATE SODIUM 100 MG CAP PO SCH ×2 (08:26→20:42)
[2022-07-11] MEDS: SIMETHICONE 80 MG CHEW PO SCH ×4 (11:39→20:42)
[2022-07-11] MEDS ORDERED: KETOROLAC 30 MG/ML VIAL IV PRN (14:45)
[2022-07-11] MEDS ORDERED: ONDANSETRON INJ 2 MG/ML 2 ML VIAL IV PRN (14:45)
[2022-07-11] MEDS ORDERED: diphenhydrAMINE Capsule 25 MG CAP PO PRN (14:45)
[2022-07-11] MEDS ORDERED: PROMETHAZINE HCL 25 MG in SODIUM CHLORIDE 0.9% 50 ML IV PRN (14:45)
[2022-07-11] MEDS ORDERED: diphenhydrAMINE 50 MG/ML VIAL IV PRN (14:45)
[2022-07-11] MEDS: IBUPROFEN 600 MG TAB PO PRN ×3 (15:07→23:16)
[2022-07-11] MEDS: oxyCODONE/ACETAMINOPHEN 5mg/325mg TAB PO PRN ×2 (15:08→19:12)
[2022-07-11] MEDS ORDERED: bisacodyL 5 MG TABEC PO SCH (20:00)
[2022-07-12] MEDS: oxyCODONE/ACETAMINOPHEN 5mg/325mg TAB PO PRN ×2 (01:55→07:20)
--- NOTE | 2022-07-12 05:55 | Obstetrical Progress Note ---
Date of Service July 12, 2022 Assessment & Plan (1) Normal labor: (2) Gestational diabetes mellitus (GDM) affecting , antepartum: (3) Previous delivery affecting , antepartum: (4) Need for rhogam due to Rh negative mother: (5) uterine contractions in third trimester, antepartum: Plan Dayanara is a 32 y/o female who is POD #2 following repeat LTCS delivery at 37 weeks. -Meeting all milestones -Vital signs reviewed and WNL -Encourage ambulation -Follow up in 6 weeks for appointment -Continue routine care -Plan for d/c today Admission and Anticipated Discharge Date Admission Date: July 10, 2022 Supervising Physician Co-Signing Physician Notes Resident Physician Supervision Note: I interviewed and examined the patient. Discussed with Dr. Glasgow and agree with findings and plan as documented in the note. Any exceptions or clarifications are listed here: [ ] Documented By: Amna Scanlon MD, FACOG Subjective Dayanara is a 32 y/o female who is POD #2 following repeat LTCS delivery at 37 weeks. She has a history of 3 prior deliveries. She reports feeling well overall this morning. Tolerating meals and able to ambulate some. Magallanes catheter removed, voiding without issue. Endorses passing gas. Currently working on breast feeding. Review of Systems Constitutional: no fever, no chills and no sweats Respiratory: no cough, no dyspnea and no wheezing Cardiovascular: no chest pain and no calf pain Genitourinary: no dysuria Neurologic: no headache(s) Physical Exam Constitutional: WD/WN, vitals as above no acute distress Respiratory: no respiratory distress Auscultation: lungs clear to auscultation bilaterally; no rales, no rhonchi and no wheezes Cardiovascular: RRR, no murmur, no edema Extremities: no calf tenderness and no edema Gastrointestinal (Abdomen): Inspection/Auscultation: normal bowel sounds Skin: no rashes, warm and dry Genitourinary: Uterine fundus firm, palpable below umbilicus. Surgical incision site clean and healing appropriately. Results & Data Vital Signs (Past 12 Hours) Vital Signs Temp Pulse Resp BP Pulse Ox O2 Del Method 07/11/22 23:15 36.9 C 67 16 97/64 L 99 Room Air Resident Activity Tracking Resident Involvement: Resident Care Provided Care Provided: OB Delivery
[2022-07-12] MEDS: IBUPROFEN 600 MG TAB PO PRN ×2 (06:26→10:02)
[2022-07-12] MEDS: FERROUS SULFATE 325 MG TAB PO SCH (08:01)
[2022-07-12] MEDS: DOCUSATE SODIUM 100 MG CAP PO SCH (08:01)
[2022-07-12] MEDS: PRENATAL VITAMIN 1 TAB PO SCH (08:01)
[2022-07-12 08:31] LABS: Hematocrit (blood only) 34.3 % (37.0-47.0); Hemoglobin 11.9 g/dl (12.0-16.0)
[2022-07-12] MEDS ORDERED: bisacodyL 10 MG SUPP PR PRN (14:27)
== END 2022-07-12 10:29 | disposition home or self-care (01) | DRG 788 ==
LOC: OPB 10:38 → 4S1 10:40 → 4E2 17:56